=== PATIENT | male | born 1950 | race Caucasian/White ===

== ENCOUNTER → 2016-08-26 | Outpatient (CLI) | payer OTHER, BC | LOC: BMCIMAGING 09:04 | PROVIDERS: ATTEND Nurse Practitioner Adult Health | DX: R91.8 Other nonspecific abnormal finding of lung field (principal); R05 Cough; R06.02 Shortness of breath; R50.9 Fever, unspecified ==

== ENCOUNTER → 2016-09-22 | Outpatient (CLI) | payer OTHER, BC | LOC: BMCIMAGING 12:03 | PROVIDERS: ATTEND Nurse Practitioner Adult Health | DX: J18.9 Pneumonia, unspecified organism (principal); M45.4 Ankylosing spondylitis of thoracic region ==

== ENCOUNTER 2018-03-16 11:07 | Emergency (ER) | payer OTHER, BC ==
--- NOTE | 2018-03-16 11:29 | EDPHY ---
H & P Stated Complaint: fever tachycardia Time Seen by Provider: 03/16/18 11:27 - Personal History Current Tetanus/Diphtheria Vaccine: Unsure Current Tetanus Diphtheria and Acellular Pertussis (TDAP): Unsure - Medical/Surgical History Hx Asthma: No Hx Chronic Respiratory Disease: No Hx Diabetes: No Hx Cardiac Disease: Yes Hx Renal Disease: No Hx Cirrhosis: No Hx Alcoholism: No Hx HIV/AIDS: No Hx Splenectomy or Spleen Trauma: No Other PMH: HTN, - Social History Smoking Status: Former smoker Constitutional: Initial Vital Signs Temperature (C) 38 C 03/16/18 11:15 Heart Rate 144 H 03/16/18 11:15 Respiratory Rate 16 03/16/18 11:15 Blood Pressure 128/96 H 03/16/18 11:15 O2 Sat (%) 94 03/16/18 11:15 O2 Delivery Mode Room Air Allergies/Adverse Reactions: No Known Allergies Allergy (Unverified 03/16/18 11:14) Home Medications: Medication Instructions Recorded ALPRAZolam 03/16/18 Albuterol [Proventil Inhaler] 1 - 2 puffs IH Q4 #1 mdi 03/16/18 Amlodipine Besylate 03/16/18 HYDROcodone/HOMATROPINE HYCODA 1 tsp PO Q4-6PRN PRN #120 ml 03/16/18 [Hycodan Syrup (RX)] Losartan-Hctz 100-12.5 mg Tab 03/16/18 Omeprazole 03/16/18 buPROPion 03/16/18 levOFLOXACIN [levAQUIN 750 MG (RX)] 750 mg PO DAILY #10 tab 03/16/18 Medical Decision Making - Diagnostics Imaging Results: Imaging Impressions Chest X-Ray 03/16/18 11:37 Impression: 1. Prominence of perihilar interstitial markings and peribronchial cuffing. Findings are nonspecific but can be seen with bronchitis, reactive airway disease, or viral process. 2. Prominent interstitial markings posteriorly probably involving the left lower lobe that could represent developing interstitial infiltrate/pneumonia. Imaging: I viewed and interpreted images myself ED Course/Re-evaluation: CHIEF COMPLAINT: Bronchitis HISTORY OF PRESENT ILLNESS: This patient is a 68 year old male with history of hypertension. He complains of bronchitis ongoing for one week. He has been coughing frequently and endorses some chest discomfort associated with this. He has had chills and a fever measured up to 103 degrees. He feels his heart rate has been elevated for the past two days. He is not currently taking antibiotics. Additionally, the patient notes he uses a CPAP which he has never cleaned and wonders if this could cause an infection. He denies nausea, vomiting, diarrhea, urinary complaints, weakness, syncope, or other associated symptoms. REVIEW OF SYSTEMS: A comprehensive 10 system review of systems is otherwise negative aside from elements mentioned in the history of present illness and medical decision making. PHYSICAL EXAM: HR, BP, O2 Sat, RR. Temp noted General Appearance: Alert, well hydrated, appropriate, and non-toxic appearing. Head: Atraumatic without scalp tenderness or obvious injury Eyes: Pupils equal, round, reactive to light and accommodation, EOMI, no trauma , no injection. Ears: Clear bilaterally, no perforation, normal landmarks Nose: Atraumatic, no rhinorrhea, clear. Throat: There is no erythema or exudates, no lesions, normal tonsils, mucus membranes moist. Neck: Supple, nontender, no lymphadenopathy. Respiratory: Coarse rhonchi throughout with decreased breath sounds in the left base. Cardiovascular: Regular rate and rhythm, no murmurs, rubs, or gallops. Bilateral carotid, radial, dorsalis pedis, and posterior tibial pulses intact. Good capillary refill all extremities. Gastrointestinal: Abdomen is soft, nontender, non-distended, no masses, no rebound, no guarding, no peritoneal signs. Musculoskeletal: Normal active ROM of all extremities, atraumatic. Neurological: Alert, appropriate, and interactive. The patient has normal DTRs and non-focal cranial nerves, motor, sensory, and cerebellar exam. Skin: No rashes, good turgor, no nodules on palpation. Past medical history: Hypertension Past surgical history: Noncontributory Family history: Noncontributory. Social history: Daughter at bedside. . Retired. DIAGNOSTICS/PROCEDURES/CRITICAL CARE TIME: The 12 lead EKG was interpreted by myself. See hard copy and/or "tracemaster" electronic copy for interpretation. Sinus tachycardia. Distinct p waves, I do not suspect SVT at this time. DIFFERENTIAL DIAGNOSIS: The differential diagnosis for the patient's shortness of breath and hypoxemia included but was not limited to pneumonia, myocardial infarction, acute mountain sickness, high altitude pulmonary edema, congestive heart failure, and pulmonary embolus. MEDICAL DECISION [id number] y/o male presents with worsening bronchitis. He is febrile and tachycardic here in the emergency department. Plan for EKG, chest x-ray, labs including CBC , chemistries, lactic acid, blood cultures, coag panel. Plan to administer 2L IV NS, 30mg IV Ketorolac for symptom relief. WBC within normal limits. Lactic acid negative. Patient does not meet septic shock criteria at this time. His tachycardia is likely due to fever and dehydration. Patient is already receiving 2L IV NS. We will continue to monitor his heart rate. Chest x-ray reviewed. Evidence of bronchitis. Evidence of left lower lobe infiltrate suggesting early pneumonia. Patient's heart rate is going down with fluid administration. Patient declines z-pack as he states this has not helped to relieve symptoms in the past. Plan to provide prescription for Levaquin. We will administer the first dose of Levaquin 750mg here in the emergency department. 13:48 Reassessed. Patient's heart rate is now around 116, decreased from 150. I offered him a third liter of fluid, but he declines and would like to go home and continue to hydrate PO. He has not urinated in 4 hours. He understands he needs to hydrate at home and use his urine as a guide for his hydration status. He understands he needs to return for any worsening of condition. I encouraged the patient to contact his CPAP provider to discuss proper cleaning and maintenance of equipment. - Data Points Laboratory Results: Laboratory Results 03/16/18 11:34 03/16/18 11:34 03/16/18 03/16/18 03/16/18 11:34 11:34 11:34 WBC 7.46 10^3/uL 10^3/uL (3.80-9.50) RBC 4.79 10^6/uL 10^6/uL (4.40-6.38) Hgb 14.9 g/dL g/dL (13.7-17.5) Hct 44.5 % % (40.0-51.0) MCV 92.9 fL fL (81.5-99.8) MCH 31.1 pg pg (27.9-34.1) MCHC 33.5 g/dL g/dL (32.4-36.7) RDW 14.3 % % (11.5-15.2) Plt Count 244 10^3/uL 10^3/uL (150-400) MPV 8.5 fL L fL (8.7-11.7) Neut % (Auto) 73.8 % % (39.3-74.2) Lymph % (Auto) 12.5 % L % (15.0-45.0) Ocean % (Auto) 11.8 % % (4.5-13.0) Eos % (Auto) 0.8 % % (0.6-7.6) Baso % (Auto) 0.7 % % (0.3-1.7) Nucleat RBC Rel Count 0.0 % % (0.0-0.2) Absolute Neuts (auto) 5.51 10^3/uL 10^3/uL (1.70-6.50) Absolute Lymphs (auto) 0.93 10^3/uL L 10^3/uL (1.00-3.00) Absolute Monos (auto) 0.88 10^3/uL H 10^3/uL (0.30-0.80) Absolute Eos (auto) 0.06 10^3/uL 10^3/uL (0.03-0.40) Absolute Basos (auto) 0.05 10^3/uL 10^3/uL (0.02-0.10) Absolute Nucleated RBC 0.00 10^3/uL 10^3/uL (0-0.01) Immature Gran % 0.4 % % (0.0-1.1) Immature Gran # 0.03 10^3/uL 10^3/uL (0.00-0.10) PT 14.0 SEC SEC (12.0-15.0) INR 1.06 (0.83-1.16) APTT 28.9 SEC SEC (23.0-38.0) VBG Lactic Acid Sodium 141 mEq/L mEq/L (135-145) Potassium 3.8 mEq/L mEq/L (3.3-5.0) Chloride 102 mEq/L mEq/L (97-110) Carbon Dioxide 27 mEq/l mEq/l (22-31) Anion Gap 12 mEq/L mEq/L (8-16) BUN 17 mg/dL mg/dL (7-23) Creatinine 1.3 mg/dL mg/dL (0.7-1.3) Estimated GFR 55 Glucose 111 mg/dL H mg/dL (70-100) Calcium 9.7 mg/dL mg/dL (8.5-10.4) Total Bilirubin 1.0 mg/dL mg/dL (0.1-1.4) 03/16/18 11:34 WBC RBC Hgb Hct MCV MCH MCHC RDW Plt Count MPV Neut % (Auto) Lymph % (Auto) Ocean % (Auto) Eos % (Auto) Baso % (Auto) Nucleat RBC Rel Count Absolute Neuts (auto) Absolute Lymphs (auto) Absolute Monos (auto) Absolute Eos (auto) Absolute Basos (auto) Absolute Nucleated RBC Immature Gran % Immature Gran # PT INR APTT VBG Lactic Acid 1.8 mmol/L mmol/L (0.7-2.1) Sodium Potassium Chloride Carbon Dioxide Anion Gap BUN Creatinine Estimated GFR Glucose Calcium Total Bilirubin Medications Given: Discontinued Medications Sodium Chloride (Ns) 1,000 mls @ 0 mls/hr IV ONCE ONE; Wide Open PRN Reason: Protocol Stop: 03/16/18 12:08 Last Admin: 03/16/18 12:10 Dose: 1,000 mls Sodium Chloride (Ns) 1,000 mls @ 0 mls/hr IV ONCE ONE; Wide Open PRN Reason: Protocol Stop: 03/16/18 12:10 Last Admin: 03/16/18 12:10 Dose: 1,000 mls Levofloxacin/Dextrose (Levaquin 750 Mg (Premix)) 150 mls @ 100 mls/hr IV EDNOW ONE PRN Reason: Protocol Stop: 03/16/18 13:49 Last Admin: 03/16/18 12:28 Dose: 150 mls Ketorolac Tromethamine (Toradol) 30 mg IVP EDNOW ONE Stop: 03/16/18 12:16 Last Admin: 03/16/18 12:17 Dose: 30 mg Departure - Departure Disposition: Home, Routine, Self-Care Clinical Impression: Bronchitis Condition: Good Instructions: Acute Bronchitis (ED), Pneumonia (ED) Additional Instructions: 1. Take Levaquin as prescribed. It is important to finish your entire course of antibiotics. 2. Follow up with your primary care provider in 1-2 days. Also, please contact your CPAP provider to discuss proper cleaning and maintenance of your CPAP equipment. 3. Take Hycodan elixir as prescribed as needed for cough. 4. Use albuterol inhaler as prescribed as needed for difficulty breathing. 5. Stay well hydrated. Please increase your fluid intake. 6. Return to the emergency department for high fever, chest pain, shortness of breath, or other worsening of condition. Adult Pain & Fever Control: We recommend Acetaminophen (Tylenol) and Ibuprofen (Motrin,Advil) for pain and fever control. When fever is high or pain severe, both drugs can be used at the same time, but at different intervals. Please note the time differences. Your dose is: Acetaminophen 650mg every 4 to 6 hours Ibuprofen 600mg every 6-8 hours with food Note: do not take Acetaminophen with Hydrocodone (Vicodin, Lortab) or Oxycodone (Percocet). These medications also contain Acetaminophen. No more than 3000mg of Acetaminophen should be taken in 24 hours (for an adult). Referrals: Roger Reyes MD [Primary Care Provider] - As per Instructions Prescriptions: Albuterol [Proventil Inhaler] 1 - 2 puffs IH Q4 #1 mdi HYDROcodone/HOMATROPINE HYCODA [Hycodan Syrup (RX)] 1 tsp PO Q4-6PRN PRN #120 ml PRN Reason: Cough, Moderate levOFLOXACIN [levAQUIN 750 MG (RX)] 750 mg PO DAILY #10 tab Report Scribed for: Javier Lew Report Scribed by: Enid Amezquita Date of Report: 03/16/18 Time of Report: 12:24
[2018-03-16 11:46] LABS: PLATELET COUNT 244 10^3/uL (150-400)
[2018-03-16 12:02] LABS: INR 1.06 (0.83-1.16)
[2018-03-16] MEDS ORDERED: NS 1,000 ML IV ONE ×2 (12:07→12:09)
[2018-03-16] MEDS ORDERED: KETOROLAC 30 MG/1 ML SDV ONE (12:15)
[2018-03-16] MEDS ORDERED: KETOROLAC 30 MG/1 ML SDV IVP ONE (12:15)
--- NOTE | 2018-03-16 13:45 | CPEKG ---
Test Reason : OPEN Blood Pressure : / mmHG Vent. Rate : 139 BPM Atrial Rate : 140 BPM P-R Int : 109 ms QRS Dur : 085 ms QT Int : 363 ms P-R-T Axes : -02 060 040 degrees QTc Int : 552 ms Sinus tachycardia Prolonged QT interval Confirmed by Javier Lew ([id number]) on 03/16/2018 1:44:14 PM Referred By: Confirmed By:Javier Lew
--- NOTE | 2018-03-16 13:45 | CPEKG ---
Test Reason : OPEN Blood Pressure : / mmHG Vent. Rate : 138 BPM Atrial Rate : 138 BPM P-R Int : 106 ms QRS Dur : 079 ms QT Int : 294 ms P-R-T Axes : 030 048 -29 degrees QTc Int : 446 ms Sinus tachycardia Borderline T abnormalities, inferior leads Confirmed by Javier Lew ([id number]) on 03/16/2018 1:44:22 PM Referred By: Confirmed By:Javier Lew
[2018-03-16 14:42] VITALS: BP 118/77
== END 2018-03-16 14:43 | disposition home or self-care (01) ==
DX: J40 Bronchitis, not specified as acute or chronic (principal); E86.9 Volume depletion, unspecified
CPT/HCPCS: 71046; 93005; 96374; 96375; 99285; J1885; J1956

== ENCOUNTER → 2018-06-03 | Outpatient (CLI) | payer OTHER, BC ==
[~2018-06-03] MED LIST: IOPAMIDOL (ISOVUE 370) 100 ML BTL IV ONE
== END ==
LOC: FIMAGING 10:41
PROVIDERS: ATTEND Surgery
DX: I73.9 Peripheral vascular disease, unspecified (principal); I74.3 Embolism and thrombosis of arteries of the lower extremities; R59.0 Localized enlarged lymph nodes
CPT/HCPCS: 75635; Q9967; 82565-PO

== ENCOUNTER → 2018-07-13 | Outpatient (CLI) | payer OTHER, BC | LOC: BHFA 15:30 | PROVIDERS: ATTEND Internal Medicine Cardiovascular Disease | DX: I73.9 Peripheral vascular disease, unspecified (principal) ==

== ENCOUNTER → 2018-08-09 | Outpatient (CLI) | payer OTHER, BC ==
[~2018-08-09] MED LIST changes: +GADOBUTROL 10 ML VIAL IVP ONE; -IOPAMIDOL (ISOVUE 370) 100 ML BTL IV ONE
== END ==
LOC: FIMAGING 11:43
PROVIDERS: ATTEND Surgery
DX: M51.36 Other intervertebral disc degeneration, lumbar region (principal); M51.37 Other intervertebral disc degeneration, lumbosacral region; M12.88 Other specific arthropathies, not elsewhere classified, other specified site; M99.73 Connective tissue and disc stenosis of intervertebral foramina of lumbar region; M48.061 Spinal stenosis, lumbar region without neurogenic claudication
CPT/HCPCS: 72158; A9585; 82565-PO

== ENCOUNTER → 2018-09-01 | Outpatient (CLI) | payer OTHER, BC | LOC: EMCIMAGING 09:48 | PROVIDERS: ATTEND Psychiatry & Neurology Neurology | DX: G82.20 Paraplegia, unspecified (principal); R76.8 Other specified abnormal immunological findings in serum; M48.02 Spinal stenosis, cervical region; M50.322 Other cervical disc degeneration at C5-C6 level | CPT/HCPCS: 70551-PN; 72141-PN; 72146-PN ==